=== PATIENT | male | born 1940 | race Caucasian/White ===

== ENCOUNTER 2019-01-08 13:09 | Outpatient (REF) | payer MEDICARE, BC, SELFPAY ==
[2019-01-08 21:28] LABS: INR 1.1 (0.9-1.1); Prothrombin Time 10.8 sec (9.3-11.0)
[2019-01-08 23:01] LABS: ALT 25 U/L (12-78); AST 18 U/L (15-37); Albumin 3.8 g/dL (3.4-5.0); Alkaline Phosphatase 68 U/L (46-116); Anion Gap 14.7 mmol/L (3-11); BUN 30 mg/dL (7-18); Bilirubin, Total 0.9 mg/dL (0.2-1.0); CO2 20.3 mmol/L (21.0-32.0); CREATININE 2.01 mg/dL (0.70-1.30); Calcium 9.1 mg/dL (8.5-10.1); Chloride 105 mmol/L (98-107); Estimated GFR 32.12 (mL/min/1.73m2); Glucose 118 mg/dL (70-100); Potassium 4.4 mmol/L (3.5-5.1); Sodium 140 mmol/L (136-145); TSH 1.78 uIU/mL (0.36-3.74); Total Protein 7.4 g/dL (6.4-8.2); Vitamin B12 349 pg/mL (193-986)
[2019-01-12 13:36] LABS: Albumin 58.9 % (55.8-66.1); Total Protein 7.2 g/dl (6.3-8.2)
== END 2019-01-08 13:29 ==
LOC: NCHCN 13:09
PROVIDERS: PCP Internal Medicine; Visit Provider Internal Medicine
DX: I10 Essential (primary) hypertension (principal); R27.9 Unspecified lack of coordination; I34.0 Nonrheumatic mitral (valve) insufficiency
CPT/HCPCS: 80053; 85027; 82607; 84165; 84443; 85610

== ENCOUNTER 2019-01-09 15:57 | Outpatient (REF) | payer MEDICARE, BC, SELFPAY ==
[2019-01-09 20:59] LABS: HCT 37.3 % (40.0-50.0); HGB 12.6 g/dL (13.5-17.5); Mean Corp. HGB Concentration 33.8 g/dL (32.0-36.0); Mean Corpuscular Hemoglobin 30.6 pg (27.0-33.0); Mean Corpuscular Volume 90.5 fL (80-95); Mean Platelet Volume 11.1 fL (8.0-11.0); Platelet Count 156 x1000/uL (130-400); RBC 4.12 m/cumm (4.50-6.00); RBC Distribution Width 14.1 % (11.8-14.1); White Blood Cell Count 6.07 k/cumm (4.4-10.8)
== END 2019-01-09 16:17 ==
LOC: NCHCN 15:57
PROVIDERS: PCP Internal Medicine; Visit Provider Internal Medicine
DX: I10 Essential (primary) hypertension (principal); R27.9 Unspecified lack of coordination
CPT/HCPCS: 85027

== ENCOUNTER 2020-01-07 22:54 | Outpatient (REF) | payer MEDICARE, BC, SELFPAY ==
[2020-01-07 20:52] LABS: HCT 29.2 % (40.0-50.0); HGB 9.4 g/dL (13.5-17.5); MCH 29.7 pg (27.0-33.0); MCHC 32.2 % (32.0-36.0); MCV 92.1 fL (80-95); MPV 11.6 fL (8.0-11.0); Platelet Count 162 10^3/uL (130-400); RBC 3.17 10^6/uL (4.36-5.78); RDW 14.9 % (11.8-14.1); RDW-SD 50.8 fL; WBC 4.78 10^3/uL (4.4-10.8)
[2020-01-07 21:04] LABS: Anion Gap 10.7 mmol/L (3-11); BUN 43 mg/dL (7-18); CO2 21.3 mmol/L (21.0-32.0); CREATININE 2.16 mg/dL (0.70-1.30); Chloride 105 mmol/L (98-107); Estimated GFR 29.49 (mL/min/1.73m2); Glucose 125 mg/dL (74-106); Potassium 4.4 mmol/L (3.5-5.1); Sodium 137 mmol/L (136-145)
== END 2020-01-07 23:14 ==
LOC: NCHCN 22:54
PROVIDERS: PCP Internal Medicine; Visit Provider Internal Medicine
DX: I10 Essential (primary) hypertension (principal)
CPT/HCPCS: 80048; 85027

== ENCOUNTER 2020-02-18 17:53 | Outpatient (REF) | payer MEDICARE, BC, SELFPAY ==
[2020-02-18 21:00] LABS: HGB 8.2 g/dL (13.5-17.5); MCH 28.4 pg (27.0-33.0); MCHC 31.5 % (32.0-36.0); MPV 11.4 fL (8.0-11.0); Platelet Count 159 10^3/uL (130-400); RBC 2.89 10^6/uL (4.36-5.78); RDW 15.2 % (11.8-14.1); RDW-SD 49.8 fL
== END 2020-02-18 18:13 ==
LOC: NCHCN 17:53
PROVIDERS: PCP Internal Medicine; Visit Provider Family Medicine
DX: R19.5 Other fecal abnormalities (principal)
CPT/HCPCS: 85027

== ENCOUNTER 2020-07-11 15:05 | Outpatient (REF) | payer MEDICARE, BC, SELFPAY ==
[2020-07-11 21:06] LABS: HCT 32.8 % (40.0-50.0); HGB 10.5 g/dL (13.5-17.5); MCH 26.2 pg (27.0-33.0); MCV 81.8 fL (80-95); MPV 11.6 fL (8.0-11.0); Platelet Count 158 10^3/uL (130-400); RBC 4.01 10^6/uL (4.36-5.78); RDW 18.3 % (11.8-14.1); RDW-SD 55.5 fL; WBC 4.86 10^3/uL (4.4-10.8)
[2020-07-11 21:17] LABS: Anion Gap 12.8 mmol/L (3-11); BUN 27 mg/dL (7-18); CO2 22.2 mmol/L (21.0-32.0); CREATININE 2.1 mg/dL (0.70-1.30); Calcium 9.1 mg/dL (8.5-10.1); Chloride 106 mmol/L (98-107); Estimated GFR 30.39 (mL/min/1.73m2); Glucose 124 mg/dL (74-106); Potassium 4.2 mmol/L (3.5-5.1); Sodium 141 mmol/L (136-145)
== END 2020-07-11 15:06 | disposition home or self-care (01) ==
LOC: NCHCN 15:05
PROVIDERS: PCP Internal Medicine; Visit Provider Internal Medicine
DX: I10 Essential (primary) hypertension (principal); R23.8 Other skin changes
CPT/HCPCS: 80048; 85027

== ENCOUNTER 2021-07-17 18:53 | Outpatient (REF) | payer MEDICARE, BC, SELFPAY ==
[2021-07-17 20:55] LABS: HCT 34.8 % (40.0-50.0); HGB 11.4 g/dL (13.5-17.5); MCH 30.1 pg (27.0-33.0); MCHC 32.8 % (32.0-36.0); MCV 91.8 fL (80-95); MPV 11.1 fL (8.0-11.0); Platelet Count 138 10^3/uL (130-400); RBC 3.79 10^6/uL (4.36-5.78); RDW 14.9 % (11.8-14.1); RDW-SD 50.4 fL
[2021-07-17 21:53] LABS: ALT 27 U/L (16-63); AST 18 U/L (15-37); Albumin 3.7 g/dL (3.4-5.0); Alkaline Phosphatase 65 U/L (46-116); Anion Gap 10.5 mmol/L (3-11); BUN 37 mg/dL (7-18); Bilirubin, Total 0.5 mg/dL (0.2-1.0); CO2 21.5 mmol/L (21.0-32.0); Calcium 9.2 mg/dL (8.5-10.1); Chloride 107 mmol/L (98-107); Estimated GFR 32.07 (mL/min/1.73m2); Glucose 106 mg/dL (74-106); Potassium 4.3 mmol/L (3.5-5.1); Sodium 139 mmol/L (136-145); Vitamin B12 272 pg/mL (193-986)
== END 2021-07-17 18:54 | disposition home or self-care (01) ==
LOC: NCHCN 18:53
PROVIDERS: PCP Internal Medicine; Visit Provider Internal Medicine
DX: Z87.19 Personal history of other diseases of the digestive system (principal); I10 Essential (primary) hypertension; F32.9 Major depressive disorder, single episode, unspecified; D49.4 Neoplasm of unspecified behavior of bladder; G47.33 Obstructive sleep apnea (adult) (pediatric)
CPT/HCPCS: 80053; 85027; 82607

== ENCOUNTER → 2022-07-10 12:41 | Outpatient (BNVA) | payer MEDICARE, BC, SELFPAY | PROVIDERS: PCP Internal Medicine; Referring Provider Internal Medicine; Visit Provider Nurse Practitioner Gerontology ==

== ENCOUNTER 2022-07-10 13:20 | Outpatient (CLI) | payer MEDICARE, BC, SELFPAY | END 2022-07-10 13:21 | disposition home or self-care (01) | LOC: LBO 13:23 | PROVIDERS: PCP Internal Medicine; Visit Provider Nurse Practitioner Gerontology | DX: Z85.51 Personal history of malignant neoplasm of bladder (principal); Z85.528 Personal history of other malignant neoplasm of kidney; Z85.46 Personal history of malignant neoplasm of prostate; Z08 Encounter for follow-up examination after completed treatment for malignant neoplasm; Z87.442 Personal history of urinary calculi | CPT/HCPCS: 81003; 99204; 99214 ==

== ENCOUNTER 2022-07-10 15:46 | Outpatient (REF) | payer MEDICARE, BC, SELFPAY ==
--- NOTE | 2022-07-10 13:20 | PAPNONF_PTH ---
PATIENT: Estevan Jefferson JR LOC: [facility] U#:[id number] AGE/SX: 82/M ROOM: RE07/10/[address]: Jamar Peng : 1940 BED: DIS: 07/10/2022 SPEC #: [id number] RECD: 07/10/22 17:16 STATUS: DAVID REKarla #: [id number] OSVALDO: 07/10/22 13:[address]: Ella Curry DEPT: [facility] Cytology RECD BY: Jazmin Rowland ENTERED: 07/10/22 17:16 SP TYPE: ELIS TERRY DR: Jamar Peng Tissues: 1 - BODY FLUID CYTO(SPUTUM/URINE)[facility] Procedures: BODY FLUID CYTO(URINE/SPUTUM) Comments: [id number] (REFRIGERATED)
[2022-07-10 20:49] LABS: Abs Immature Grans 0.01 10^3/uL (0.0-0.06); Absolute Basophil Count 0.02 10^3/uL (0.0-0.2); Absolute Lymphocyte Count 0.85 10^3/uL (1.2-3.4); Absolute Monocyte Count 0.36 10^3/uL (0.1-0.8); Absolute Neutrophil Count 2.72 10^3/uL (1.2-6.7); Basophils % 0.5; Eosinophils % 4.8; HCT 36.2 % (40.0-50.0); Immature Grans % 0.2; Lymphocytes % 20.4; MCH 29.9 pg (27.0-33.0); MCHC 33.1 % (32.0-36.0); MCV 90 fL (80-95); Monocytes % 8.7; Neutrophils % 65.4; Platelet Count 145 10^3/uL (130-400); RBC 4.02 10^6/uL (4.36-5.78); RDW 14.3 % (11.8-14.1); RDW-SD 46.9 fL; WBC 4.16 10^3/uL (4.4-10.8)
[2022-07-10 20:58] LABS: Anion Gap 10.9 mmol/L (3-11); BUN 43 mg/dL (7-18); CO2 22.1 mmol/L (21.0-32.0); CREATININE 2.5 mg/dL (0.70-1.30); Calcium 9.4 mg/dL (8.5-10.1); Chloride 103 mmol/L (98-107); Estimated GFR 24.72 (mL/min/1.73m2); Glucose 105 mg/dL (74-106); Sodium 136 mmol/L (136-145)
== END 2022-07-10 15:47 | disposition home or self-care (01) ==
LOC: LBN 15:46
PROVIDERS: PCP Internal Medicine; Visit Provider Internal Medicine
DX: I10 Essential (primary) hypertension (principal); N18.30 Chronic kidney disease, stage 3 unspecified; R26.89 Other abnormalities of gait and mobility; G47.33 Obstructive sleep apnea (adult) (pediatric); F32.9 Major depressive disorder, single episode, unspecified; C61 Malignant neoplasm of prostate
CPT/HCPCS: 80048; 85025; 88104

== ENCOUNTER 2022-08-07 16:16 | Outpatient (REF) | payer MEDICARE, BC, SELFPAY ==
[2022-08-07 21:02] LABS: Anion Gap 10.3 mmol/L (3-11); BUN 42 mg/dL (7-18); CO2 20.7 mmol/L (21.0-32.0); CREATININE 2.3 mg/dL (0.70-1.30); Calcium 9.4 mg/dL (8.5-10.1); Chloride 109 mmol/L (98-107); Estimated GFR 27.32 (mL/min/1.73m2); Glucose 100 mg/dL (74-106); Potassium 5.4 mmol/L (3.5-5.1); Sodium 140 mmol/L (136-145)
== END 2022-08-07 16:17 | disposition home or self-care (01) ==
LOC: NCHCN 16:16
PROVIDERS: PCP Internal Medicine; Visit Provider Internal Medicine
DX: I10 Essential (primary) hypertension (principal); N18.4 Chronic kidney disease, stage 4 (severe)
CPT/HCPCS: 80048

== ENCOUNTER 2022-08-27 15:06 | Outpatient (REF) | payer MEDICARE, BC, SELFPAY ==
[2022-08-27 15:40] LABS: Anion Gap 11.6 mmol/L (3-11); BUN 48 mg/dL (7-18); CO2 17.4 mmol/L (21.0-32.0); CREATININE 2.3 mg/dL (0.70-1.30); Calcium 9.4 mg/dL (8.5-10.1); Chloride 107 mmol/L (98-107); Estimated GFR 27.32 (mL/min/1.73m2); Glucose 157 mg/dL (74-106); Potassium 5.3 mmol/L (3.5-5.1); Sodium 136 mmol/L (136-145)
== END 2022-08-27 15:07 | disposition home or self-care (01) ==
LOC: NCHCN 15:06
PROVIDERS: PCP Internal Medicine; Visit Provider Internal Medicine
DX: I10 Essential (primary) hypertension (principal); R79.89 Other specified abnormal findings of blood chemistry
CPT/HCPCS: 80048

== ENCOUNTER → 2023-07-09 14:36 | Outpatient (BNVA) | payer MEDICARE, SELFPAY | PROVIDERS: PCP Internal Medicine; Referring Provider Internal Medicine; Visit Provider Nurse Practitioner Gerontology | DX: C67.9 Malignant neoplasm of bladder, unspecified (principal); C64.9 Malignant neoplasm of unspecified kidney, except renal pelvis; Z87.442 Personal history of urinary calculi | CPT/HCPCS: 99202 ==